=== PATIENT | male | born 1985 | race Two or more races ===

== ENCOUNTER 2022-04-18 19:28 | Emergency (ER) | payer BC, OTHER ==
[~2022-04-18] VITALS: Ht 172.7 cm; Wt 141.8 kg
[2022-04-18] MEDS ORDERED: cloNIDine HCL 0.1 MG TAB ONE (20:11)
[2022-04-18 20:20] LABS: Urine Bacteria NONE SEEN /hpf (None Seen); Urine Blood Negative /uL (Negative); Urine Specific Gravity 1.014 (1.001-1.035); Urine WBC 1 /hpf (0 - 3)
[2022-04-18] MEDS ORDERED: DexAMETHasone SOD PHOS 10MG/1ML VIAL INJ IM ONE (21:00)
[2022-04-18] MEDS ORDERED: ACYCLOVIR 400 MG TAB PO ONE (21:00)
[2022-04-18 22:08] VITALS: BP 162/115
[2022-04-18 22:15] LABS: Basophils # (auto) 0.1 10 ^3/uL (0-0.2); Basophils % (auto) 0.7 % (0.0-2.0); Eosinophils # (auto) 0.3 10 ^3/uL (0-0.8); Eosinophils % (auto) 1.8 % (0.0-7.0); Hematocrit 44.9 % (41.0-53.0); Lymphocytes % (auto) 20.4 % (10.0-50.0); Mean Corpuscular Hemoglobin 28.7 pg (28.0-32.0); Mean Corpuscular Hgb Conc. 33.5 g/dL (32.0-36.0); Mean Corpuscular Volume 85.8 fL (80.0-100.0); Monocytes # (auto) 0.7 10 ^3/uL (0-1.3); Monocytes % (auto) 4.8 % (0.0-12.0); Neutrophils # (auto) 10.7 10 ^3/uL (1.6-8.6); Neutrophils % (auto) 72.3 % (37.0-80.0); Red Blood Cells 5.24 10^6/uL (4.5-5.90); Red Cell Distribution Width 13.2 % (11.8-14.3); White Blood Cell 14.7 10^3/uL (4.4-10.8)
[2022-04-18 22:33] LABS: Calcium 9.1 mg/dL (8.5-10.1); Potassium 3.7 mmol/L (3.5-5.1)
[2022-04-18 22:38] LABS: BUN/Creatinine Ratio 7.3; Bilirubin, Total 0.5 mg/dL (0.2-1.0); Total Protein 8.2 g/dL (6.4-8.2)
[2022-04-19] MEDS ORDERED: ACYC-166 PO (03:55)
[2022-04-19] MEDS ORDERED: DEX4T PO (03:55)
== END 2022-04-19 04:16 | disposition home or self-care (01) ==
LOC: ER 19:31
DX: G51.0 Bell's palsy (principal); D72.829 Elevated white blood cell count, unspecified; F17.210 Nicotine dependence, cigarettes, uncomplicated; Z20.822 Contact with and (suspected) exposure to COVID-19
CPT/HCPCS: 36415; 70450; 80053; 81001; 85025; 87426; 87804; 96372

== ENCOUNTER 2024-11-25 08:26 | Inpatient (IN) | payer BC ==
[~2024-11-25] VITALS: Ht 172.7 cm; Wt 135.0 kg
[~2024-11-25 08:26] MED LIST: ACYC1TAB3 PO; DEX4T PO
--- NOTE | 2024-11-25 08:49 | ECG ---
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
--- NOTE | 2024-11-25 09:12 | DVH ---
XY CHEST PORTABLE, HISTORY: weakness COMPARISON: None None TECHNICAL DATA: 1 view of the chest was obtained. FINDINGS: Lines and tubes: None Cardiomediastinal silhouette: Enlarged Pulmonary vasculature: prominent Lung expansion: normal Lung airspace: normal Lung interstitium: normal Pleura: normal Pneumothorax: no Bones: Unremarkable Other: no IMPRESSION: Cardiomegaly with pulmonary vascular congestion.
[2024-11-25 09:17] LABS: Hematocrit 45.3 % (41.0-53.0); Hemoglobin 14.8 g/dL (13.5-17.5); Mean Corpuscular Hemoglobin 26.7 pg (28.0-32.0); Mean Corpuscular Volume 82.0 fL (80.0-100.0); Nucleated Red Blood Cells % 0.0 %
--- NOTE | 2024-11-25 09:17 | ED.PDOC ---
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 Patient reports that he went to his PCP due from having hypertension for a whilefor when getting his blood pressure checked at his PCP it came back as 178/150. Patient reports that he was hospitalized a month ago from having liquids in his lungs and heart failure. Patient notes that his symptoms during hypertension are shortness of breath, chest pain and tiredness. Patient states on being tired for the past 2 days which has been constant. Denies chills, fever, N/V/D. No other associated symptoms, modifiers, recent injuries or sick contacts present at this time. Chief Complaint: High Blood Pressure Time Seen by MD: 08:45 Primary Care Provider: ROSS Reza Notes: Nurses Notes, Medications, Allergies Allergies: Coded Allergies: NO KNOWN ALLERGIES (Unverified , 04/18/22) Home Meds Active Scripts Dexamethasone (Decadron) 4 Mg Tb, 6 MG PO DAILY for 7 Days, #14 TAB Prov:ROBERT CHAVEZ DO 04/19/22 Acyclovir (Acyclovir) 800 Mg Tab, 800 MG PO BID for 7 Days, #14 TAB Prov:ROBERT CHAVEZ DO 04/19/22 Information Source: Patient Mode of Arrival: Ambulatory Severity: Moderate Timing: Days Duration: Since onset, Days Prehospital treatment: None Past Medical History PAST MEDICAL HISTORY: Denies Surgical History: Denies all surgeries Family History Family History: Reviewed,noncontributory to illness, Unknown Social History Smoker: Non-Smoker Alcohol: Denies ETOH Use Drugs: Denies Drug Use Lives In: Home Constitutional: reports: fatigue; denies: chills, diaphoresis, fever, malaise, sweats, weakness, others EENTM: denies: blurred vision, double vision, ear bleeding, ear discharge, ear drainage, ear pain, ear ringing, eye pain, eye redness, hearing loss, mouth pain, mouth swelling, nasal discharge, nose bleeding, nose congestion, nose pain, photophobia, tearing, throat pain, throat swelling, voice changes, others Respiratory: reports: shortness of breath; denies: cough, hemoptysis, orthopnea, SOB at rest, SOB with excertion, stridor, wheezing, others Cardiovascular: reports: chest pain; denies: dizzy spells, diaphoresis, Dyspnea on exertion, edema, irregular heart beat, left arm pain, lightheadedness, palpitations, PND, syncope, others Gastrointestinal: denies: abdomen distended, abdominal pain, blood streaked bowels, constipated, diarrhea, dysphagia, difficulty swallowing, hematemesis, melena, nausea, poor appetite, poor fluid intake, rectal bleeding, rectal pain, vomiting, others Genitourinary: denies: burning, dysuria, flank pain, frequency, hematuria, incontinence, penile discharge, penile sore, pain, testicle pain, testicle swelling, urgency, others Neurological: denies: dizziness, fainting, headache, left sided numbness, left sided weakness, numbness, paresthesia, pre-existing deficit, right sided numbness, right sided weakness, seizure, speech problems, tingling, tremors, weakness, others Musculoskeletal: denies: back pain, gout, joint pain, joint swelling, muscle pain, muscle stiffness, neck pain, others Integumetry: denies: bruises, change in color, change in hair/nails, dryness, laceration, lesions, lumps, rash, wounds, others Allergic/Immunocompromised: denies: Difficulty Healing, Frequent Infections, Hives, Itching, others Hematologic/Lymphatic: denies: anemia, blood clots, easy bleeding, easy bruising, swollen glands, others Endocrine: denies: excessive hunger, excessive sweating, excessive thirst, excessive urination, flushing, intolerance to cold, intolerance to heat, unexplained weight gain, unexplained weight loss, others Psychiatric: denies: anxiety, bipolar disorder, depression, hopeless, panic disorder, schizophrenia, sleepless, suicidal, others All Other Systems: Reviewed and Negative Physical Exam General Appearance: No Apparent Distress, Normal HEENT: Normal ENT Inspection, Pharynx Normal, TMs Normal Neck: Full Range of Motion, Non-Tender, Normal, Normal Inspection Respiratory: Chest Non-Tender, Lungs Clear, No Accessory Muscle Use, No Respiratory Distress, Normal Breath Sounds Cardiovascular: No Edema, No JVD, No Murmur, No Gallop, Normal Peripheral Pulses, Regular Rate/Rhythm Breast Exam: Deferred Gastrointestinal: No Organomegaly, Non Tender, No Pulsatile Mass, Normal Bowel Sounds, Soft Genitalia: Deferred Pelvic: Deferred Rectal: Deferred Extremities: No calf tenderness, Normal capillary refill, Normal inspection, Normal range of motion, Non-tender, No pedal edema Musculoskeletal : Apperance: Normal Neurologic: Alert, production line II-XII nml as Tested, No Motor Deficits, Normal Affect, Normal Mood, No Sensory Deficits Cerebellar Function: Normal Reflexes: Normal Skin: Dry, Normal Color, Warm Lymphatic: No Adenopathy Was a procedure done? Was a procedure done?: No EKG EKG : Pulse Rate (adult): 93 [place]: Normal Cardiac Rhythm: NSR Block: None Hypertrophy: None ST: Normal Differential Dx Considerations may include: chf, hypertensive emergency, hypertensive urgency, noncompliance, renal failure, anxiety, stress reaction X-Ray, Labs, Meds, VS Vital Signs Date Time Temp Pulse Resp B/P (MAP) Pulse Ox O2 Delivery O2 Flow Rate FiO2 11/25/24 11:01 81 16 168/105 (126) 97 11/25/24 09:58 75 16 142/82 (102) 96 11/25/24 09:17 93 11/25/24 09:05 98.2 85 18 170/113 (132) 95 98.2 11/25/24 09:00 Room Air* 0 21 11/25/24 08:43 93 11/25/24 08:34 98.2 90 18 186/124 (144) 95 98.2 185/123 (143) Lab Test 11/25/24 09:54 11/25/24 08:59 Range/Units Troponin I High Sensitivity 14 15 </=54 ng/L White Blood Count 11.2 H 4.4-10.8 10^3/uL Red Blood Count 5.52 4.5-5.90 10^6/uL Hemoglobin 14.8 13.5-17.5 g/dL Hematocrit 45.3 41.0-53.0 % Mean Corpuscular Volume 82.0 80.0-100.0 fL Mean Corpuscular Hemoglobin 26.7 L 28.0-32.0 pg Mean Corpuscular Hemoglobin Concent 32.6 32.0-36.0 g/dL Red Cell Distribution Width 14.2 11.8-14.3 % Platelet Count 386 140-450 10^3/uL Mean Platelet Volume 8.1 6.9-10.8 fL Neutrophils (%) (Auto) 69.5 37.0-80.0 % Lymphocytes (%) (Auto) 22.0 10.0-50.0 % Monocytes (%) (Auto) 4.5 0.0-12.0 % Eosinophils (%) (Auto) 3.2 0.0-7.0 % Basophils (%) (Auto) 0.8 0.0-2.0 % Neutrophils # (Auto) 7.8 1.6-8.6 10 ^3/uL Lymphocytes # (Auto) 2.5 0.4-5.4 10 ^3/uL Monocytes # (Auto) 0.5 0-1.3 10 ^3/uL Eosinophils # (Auto) 0.4 0-0.8 10 ^3/uL Basophils # (Auto) 0.1 0-0.2 10 ^3/uL Nucleated Red Blood Cells 0.0 % Sodium Level 140 136-145 mmol/L Potassium Level 4.0 3.5-5.1 mmol/L Chloride Level 106 98-107 mmol/L Carbon Dioxide Level 24 20-31 mmol/L Anion Gap 10 5-15 Blood Urea Nitrogen 14 9-23 mg/dL Creatinine 1.58 H 0.700-1.30 mg/dL Glomerular Filtration Rate Calc 57 >90 mL/min BUN/Creatinine Ratio 8.9 L 10.0-20.0 Serum Glucose 107 H 74-106 mg/dL Calcium Level 9.5 8.7-10.4 mg/dL B-Type Natriuretic Peptide 83.47 0-100 pg/mL Time of 1ST Reevaluation: 09:15 Reevaluation 1ST: Unchanged Time of 2ND Reevaluation: 11:57 Reevaluation 2ND: Improved Patient Education/Counseling: Diagnosis, Treatment, Prognosis, Need For Follow Up Family Education/Counseling: No Family Present Comments pt's bp is improved, but he has evidence of chg on cxr and renal failure. pt reports that his kidneys are fine, and is not aware of any pre-existing renal disorders. he will be admitted for further workup of the uncontrolled htn, renal failure, chf SEPSIS Sepsis Screen Date sepsis recognized/suspect: Nov 25, 2024 Time Sepsis recognized/suspect: 0834 Recent Procedure: No On Antibiotic Therapy: No Respiratory Rate >20: No Heart Rate >90: No Temp<36 C (96.8 F) or >38.3 C: No SBP <90 or MAP <65 mmHG: No New Acute Mental Status Change: No Is the patient on CPAP, BIPAP,: No Physician Orders Chest Portable (11/25/24 08:46) Troponin-I Hs (11/25/24 11:46) Vital Signs Date Time Temp Pulse Resp B/P (MAP) Pulse Ox O2 Delivery O2 Flow Rate FiO2 11/25/24 11:01 81 16 168/105 (126) 97 11/25/24 09:58 75 16 142/82 (102) 96 11/25/24 09:17 93 11/25/24 09:05 98.2 85 18 170/113 (132) 95 98.2 11/25/24 09:00 Room Air* 0 21 11/25/24 08:43 93 11/25/24 08:34 98.2 90 18 186/124 (144) 95 98.2 185/123 (143) Laboratory Tests Test 11/25/24 08:59 White Blood Count 11.2 10^3/uL (4.4-10.8) H Departure 1 Departure Time of Disposition: 11:58 Impression: Primary Impression: Poorly-controlled hypertension Additional Impressions: Renal failure Qualified Codes: N17.9 - Acute kidney failure, unspecified CHF (congestive heart failure) Qualified Codes: I50.33 - Acute on chronic diastolic (congestive) heart failure Disposition: ADMITTED INPATIENT Admit to: Tele Condition: Serious Discharged With: Spouse Critical Care Note Critical Care Time?: Yes (55 min-critical care time only) Critical care comment: Due to concerns for patients condition deteriorating, the care required my highest level of attention and readiness to intervene. I assessed the patient, reviewed the medical records, ordered the appropriate tests and treatments, then reassessed for results and responsiveness. I communicated with medical personnel and consultants and formulated a plan of care. Total critical care time excludes any procedures Stability Stability form required: No I personally scribed for RUPAL HANLEY MD ([email or web address]) on 11/25/24 at 09:17. Electronically submitted by Mark Juarez ([email or web address]). RUPAL HANLEY MD Nov 25, 2024 09:17
[2024-11-25 09:26] LABS: Chloride 106 mmol/L (98-107); Potassium 4.0 mmol/L (3.5-5.1); Sodium 140 mmol/L (136-145)
[2024-11-25 09:27] LABS: Anion Gap 10 (5-15); Carbon Dioxide 24 mmol/L (20-31)
[2024-11-25 09:28] LABS: Calcium 9.5 mg/dL (8.7-10.4)
[2024-11-25 09:33] LABS: BUN/Creatinine Ratio 8.9 (10.0-20.0); Blood Urea Nitrogen 14 mg/dL (9-23); Glucose 107 mg/dL (74-106)
[2024-11-25] MEDS ORDERED: NITROGLYCERIN 0.4 MG SL TAB SL PRN (12:45)
[2024-11-25] MEDS ORDERED: ONDANSETRON HCL 4 MG/2 ML VIAL IV PRN (12:45)
[2024-11-25] MEDS ORDERED: MORPHINE SULFATE INJ 2 MG/ml SYRG IV PRN ×2 (12:45)
--- NOTE | 2024-11-25 12:51 | DVHHP2 ---
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 Patient reports that he went to his PCP due from having hypertension for a whilefor when getting his blood pressure checked at his PCP it came back as 178/150. Patient reports that he was hospitalized a month ago from having liquids in his lungs and heart failure. Patient notes that his symptoms during hypertension are shortness of breath, chest pain and tiredness. Patient states on being tired for the past 2 days which has been constant. Denies chills, fever, N/V/D. No other associated symptoms, modifiers, recent injuries or sick contacts present at this time. Given his blood pressure significantly elevated with a complains of chest discomfort and mild worsening of creatinine it is felt patient needs to be hospitalized for brief period of time to control his blood pressure and further adjust his BP medications. Review of Systems Review of Systems Complains of or shortness for breath with exertion and some chest discomfort. No nausea vomiting headache dizziness or lightheadedness. No recent travel. No fevers chills or sweats. Other review of systems reviewed normal. Allergies: Coded Allergies: NO KNOWN ALLERGIES (Unverified , 04/18/22) Medications Current Medications Medications Dose Ordered Sig/Ginger Route Start Time Stop Time Status Last Admin Dose Admin Nitroglycerin 0.4 mg Q5MINP PRN SL 11/25/24 12:45 UNV Morphine Sulfate 2 mg Q30M PRN IV 11/25/24 12:45 UNV Carvedilol 6.25 mg Q12HR PO 11/25/24 22:00 UNV Nifedipine 30 mg BID PO 11/25/24 22:00 UNV Hydralazine HCl 25 mg Q8HR PO 11/25/24 14:00 UNV Clonidine HCl 0.1 mg Q4HP PRN PO 11/25/24 12:45 UNV Ondansetron HCl 4 mg Q4HPRN PRN IV 11/25/24 12:45 UNV Morphine Sulfate 2 mg Q6HPRN PRN IV 11/25/24 12:45 UNV Famotidine 20 mg DAILY PO 11/26/24 10:00 UNV Exam Vital Signs Vital Signs Date Time Temp Pulse Resp B/P (MAP) Pulse Ox O2 Delivery O2 Flow Rate FiO2 11/25/24 12:31 67 11/25/24 11:01 16 168/105 (126) 97 11/25/24 09:05 98.2 98.2 11/25/24 09:00 Room Air* 0 21 Exam Obese gentleman alert awake oriented x3. Comfortable in bed without distress. HEENT neck supple no JVD. Heart regular rate and rhythm S1 plus S2. No murmurs. Lungs fair air movement chest tube will expansion no rales wheezes. Abdomen is obese. Soft nontender positive bowel sounds. Extremities trace edema around the ankles. Positive distal pedal pulses. Labs/Xrays Labs Test 11/25/24 12:00 11/25/24 08:59 Range/Units Troponin I High Sensitivity 14 </=54 ng/L White Blood Count 11.2 H 4.4-10.8 10^3/uL Red Blood Count 5.52 4.5-5.90 10^6/uL Hemoglobin 14.8 13.5-17.5 g/dL Hematocrit 45.3 41.0-53.0 % Mean Corpuscular Volume 82.0 80.0-100.0 fL Mean Corpuscular Hemoglobin 26.7 L 28.0-32.0 pg Mean Corpuscular Hemoglobin Concent 32.6 32.0-36.0 g/dL Red Cell Distribution Width 14.2 11.8-14.3 % Platelet Count 386 140-450 10^3/uL Mean Platelet Volume 8.1 6.9-10.8 fL Neutrophils (%) (Auto) 69.5 37.0-80.0 % Lymphocytes (%) (Auto) 22.0 10.0-50.0 % Monocytes (%) (Auto) 4.5 0.0-12.0 % Eosinophils (%) (Auto) 3.2 0.0-7.0 % Basophils (%) (Auto) 0.8 0.0-2.0 % Neutrophils # (Auto) 7.8 1.6-8.6 10 ^3/uL Lymphocytes # (Auto) 2.5 0.4-5.4 10 ^3/uL Monocytes # (Auto) 0.5 0-1.3 10 ^3/uL Eosinophils # (Auto) 0.4 0-0.8 10 ^3/uL Basophils # (Auto) 0.1 0-0.2 10 ^3/uL Nucleated Red Blood Cells 0.0 % Sodium Level 140 136-145 mmol/L Potassium Level 4.0 3.5-5.1 mmol/L Chloride Level 106 98-107 mmol/L Carbon Dioxide Level 24 20-31 mmol/L Anion Gap 10 5-15 Blood Urea Nitrogen 14 9-23 mg/dL Creatinine 1.58 H 0.700-1.30 mg/dL Glomerular Filtration Rate Calc 57 >90 mL/min BUN/Creatinine Ratio 8.9 L 10.0-20.0 Serum Glucose 107 H 74-106 mg/dL Calcium Level 9.5 8.7-10.4 mg/dL B-Type Natriuretic Peptide 83.47 0-100 pg/mL SEPSIS Sepsis Screen Date sepsis recognized/suspect: Nov 25, 2024 Time Sepsis recognized/suspect: 899 Recent Procedure: No On Antibiotic Therapy: No Respiratory Rate >20: No Heart Rate >90: No Temp<36 C (96.8 F) or >38.3 C: No SBP <90 or MAP <65 mmHG: No New Acute Mental Status Change: No Is the patient on CPAP, BIPAP,: No Physician Orders Chest Portable (11/25/24 08:46) Admit (11/25/24 12:45) * Cardiology Consult (11/25/24 12:45) Cardiac Diet-2gna,Lofat,Lochol (11/25/24 Lunch) Echo 2d Mode Cardiac Dop (11/25/24 12:45) Nitroglycerin Sublingual (Ntrostat Subli (11/25/24 12:45) Morphine Sulfate Injection (11/25/24 12:45) Stat Ekg For Chest Pain (11/25/24 12:45) Notify Md Of Changes From Base (11/25/24 12:45) Tassel Clipper For 24 Hours (11/25/24 12:45) Emergency Dysrhythmia Protocol (11/25/24 12:45) Rhythm Strips Once Every Shift (11/25/24 12:45) Oxygen By Nasal Cannula (11/25/24 12:45) Carvedilol Tablet (Coreg Tablet) (11/25/24 22:00) Nifedipine Er (Procardia Xl (Time-Releas (11/25/24 22:00) Hydralazine Hcl Tablet (Apresoline Table (11/25/24 14:00) Clonidine Hcl Tablet (Catapres Tablet) (11/25/24 12:45) Ondansetron Hcl (Zofran) (11/25/24 12:45) Morphine Sulfate Injection (11/25/24 12:45) Famotidine Tablet (Pepcid Tablet) (11/26/24 10:00) Alprazolam Tablet (Xanax Tablet) (11/25/24 13:00) Alprazolam Tablet (Xanax Tablet) (11/25/24 22:00) Basic Metabolic Panel (11/26/24 04:00) Vital Signs Date Time Temp Pulse Resp B/P (MAP) Pulse Ox O2 Delivery O2 Flow Rate FiO2 11/25/24 12:31 67 11/25/24 11:01 81 16 168/105 (126) 97 11/25/24 09:58 75 16 142/82 (102) 96 11/25/24 09:17 93 11/25/24 09:05 98.2 85 18 170/113 (132) 95 98.2 11/25/24 09:00 Room Air* 0 21 11/25/24 08:43 93 11/25/24 08:34 98.2 90 18 186/124 (144) 95 98.2 185/123 (143) Laboratory Tests Test 11/25/24 08:59 White Blood Count 11.2 10^3/uL (4.4-10.8) H Assessment/Plan Assessment/Plan Telemetry floor. 2D echocardiogram. Start him on home medications and adjust the dosages to keep the blood pressure below 140/80. Patient counseled and educated regarding diet exercise and weight loss for his obesity. We will monitor his kidney function. Probably secondary to end-organ damage from his with a poorly controlled hypertension. Otherwise continue rest of supportive care and treatment. Cardiac consultation. Further clinical management per clinical course and pending evaluations and studies. Plan discussed with: Other My Orders Orders - JESUSITA ABARCA MD Procedure Category Date Status Time Admit ADMIT 11/25/24 Transmitted 12:45 * Cardiology Consult CONS 11/25/24 Transmitted 12:45 Cardiac DIET 11/25/24 Transmitted Diet-2gna,Lofat,Lochol Lunch Echo 2d Mode Cardiac US 11/25/24 Logged DOP 12:45 Nitroglycerin PHA 11/25/24 Logged Sublingual (Ntrostat 12:45 Morphine Sulfate PHA 11/25/24 Logged Injection 12:45 Stat Ekg For Chest [facility] 11/25/24 In Process Pain 12:45 Notify Of Changes [facility] 11/25/24 In Process From Base 12:[address] Tassel [address] [facility] 11/25/24 In Process 24 Hours 12:[address] [facility] 11/25/24 In Process Protocol 12:45 Rhythm Strips [address] [facility] 11/25/24 In Process Every Shift 12:45 Oxygen By Nasal RT 11/25/24 Transmitted Cannula 12:45 Carvedilol Tablet PHA 11/25/24 Logged (Coreg Tablet) 22:00 Nifedipine Er PHA 11/25/24 Logged (Procardia Xl 22:00 Hydralazine Hcl PHA 11/25/24 Logged Tablet (Apresoline 14:00 Clonidine Hcl Tablet PHA 11/25/24 Logged (Catapres Tablet) 12:45 Ondansetron Hcl PHA 11/25/24 Logged (Zofran) 12:45 Morphine Sulfate PHA 11/25/24 Logged Injection 12:45 Famotidine Tablet PHA 11/26/24 Logged (Pepcid Tablet) 10:00 Alprazolam Tablet PHA 11/25/24 Logged (Xanax Tablet) 13:00 Alprazolam Tablet PHA 11/25/24 Logged (Xanax Tablet) 22:00 Basic Metabolic Panel LAB 11/26/24 Verified 04:00 Problem List: (1) Renal failure (2) Poorly-controlled hypertension JESUSITA ABARCA MD Nov 25, 2024 12:51
[2024-11-25] MEDS: ALPRAZolam 0.25 MG TAB PO ONE (13:13)
[2024-11-25 14:19] VITALS: BP 157/103; PULSE 87; RESP 16; TEMP 98.6; O2SAT 97
[2024-11-25 14:28] VITALS: BP 157/103; PULSE 87; RESP 16; O2SAT 97
[2024-11-25] MEDS ORDERED: FURO40TA4 PO (14:47)
[2024-11-25] MEDS ORDERED: CARV3.1240 PO (14:47)
[2024-11-25] MEDS ORDERED: LOSA-534 PO (14:47)
--- NOTE | 2024-11-25 16:49 | DVHINCON2 ---
Date Seen: Nov 25, 2024 Referring Physician MD Rosa Reason for Consultation Hypertension History of Present Illness This is a 39-year-old male patient who presents to the emergency room with chief complaint of elevated blood pressure and chest pressure. The patient reports that he was being seen at his primary care physician's office for a nurse visit and was told that his blood pressure was significantly elevated and that he needed to go to the emergency room. The patient mentions that he has been having intermittent chest pressure for two days. He describes it as unprovoked, intermittent, pressure-like in nature, left-sided and nonradiating. He denies any associated symptoms. Initial twelve lead electrocardiogram reveals normal sinus rhythm without any significant ST segment changes. Initial troponin level of 15ng/L with flat trend thereafter. Significant past medical history includes congestive heart failure, hypertension, dyslipidemia, Joel's palsy, and obesity. The patient states he has not followed up with a van helper in the outpatient setting. Past Medical History Past medical history reviewed. No other significant than mentioned above. Past Surgical History Denies Family History: Diabetes mellitus G8 MOTHER Family History Family history reviewed. Social History Patient has a five pack-year history, quit smoking approximately five months ago Denies any illicit drug use Admits to occasional alcohol use Allergies: Coded Allergies: NO KNOWN ALLERGIES (Unverified , 04/18/22) Home Meds Reported Medications Furosemide (Furosemide) 40 Mg Tab, 1 TAB PO DAILY 11/25/24 Carvedilol (Carvedilol) 3.125 Mg Tab, 1 TAB PO BID 11/25/24 Losartan Potassium (Losartan Potassium) 50 Mg Tab, 1 TAB PO DAILY 11/25/24 Home Meds Home medications reviewed. Current Medications Current Medications Medications (Trade) Dose Ordered Sig/Ginger Route PRN Reason Start Time Stop Time Status Last Admin Nitroglycerin (Ntrostat Sublingual) 0.4 mg Q5MINP PRN SL FOR CHEST PAIN 11/25/24 12:45 Morphine Sulfate 2 mg Q30M PRN IV FOR CHEST PAIN 11/25/24 12:45 Carvedilol (Coreg Tablet) 6.25 mg Q12HR PO 11/25/24 22:00 Nifedipine (Procardia Xl (Time-Release)) 30 mg BID PO 11/25/24 22:00 Hydralazine HCl (Apresoline Tablet) 25 mg Q8HR PO 11/25/24 14:00 11/25/24 13:13 Clonidine HCl (Catapres Tablet) 0.1 mg Q4HP PRN PO SBP>150 11/25/24 12:45 Ondansetron HCl (Zofran) 4 mg Q4HPRN PRN IV NAUSEA / VOMITING 11/25/24 12:45 Morphine Sulfate 2 mg Q6HPRN PRN IV SEVERE PAIN (7-10 PAIN SCALE) 11/25/24 12:45 Famotidine (Pepcid Tablet) 20 mg DAILY PO 11/26/24 10:00 Alprazolam (Xanax Tablet) 0.25 mg BID PO 11/25/24 22:00 Losartan Potassium (Cozaar Tablet) 100 mg DAILY PO 11/26/24 10:00 Review of Systems Constitutional: No symptom reported Ears, Nose, & Throat: No symptom reported Eyes: No symptom reported Neurological: No symptoms reported Pulmonary/Respiratory: No symptoms reported Cardiovascular: Chest pressure Gastrointestinal: No symptom reported Genitourinary: No symptom reported Musculoskeletal: No symptom reported Skin: No symptom reported Psychiatric: No symptom reported Endocrine: No symptom reported Hematologic/Lymphatic: No symptom reported Vital Signs Vital Signs Date Time Temp Pulse Resp B/P (MAP) Pulse Ox O2 Delivery O2 Flow Rate FiO2 11/25/24 14:28 87 16 157/103 (121) 97 11/25/24 14:19 98.6 98.6 11/25/24 09:00 Room Air* 0 21 Physical Exam General Appearance: Cooperative. Morbidly obese Pulmonary/Respiratory: Clear, bilateral breaths sounds. Cardiovascular/Chest: Regular rate and rhythm. Peripheral Pulses: 2+ Radial (R). 2+ Radial (L). 2+ Pedal (R). 2+ Pedal (L) Abdominal Exam: Normal bowel sounds. Ankle Exam: Negative ankle edema Lower extremities: Negative lower extremity edema Neuro/Mental Status: A/OX4, coherent. Thoughts/Psych: Normal thought pattern. Appropriate mood and affect. Good judgment and insight. Appearance: No acute distress. Skin Exam: Normal inspection. Normal color. Warm and dry. Labs/Diagnostic Data Labs Test 11/25/24 12:00 11/25/24 08:59 Range/Units Troponin I High Sensitivity 14 </=54 ng/L White Blood Count 11.2 H 4.4-10.8 10^3/uL Red Blood Count 5.52 4.5-5.90 10^6/uL Hemoglobin 14.8 13.5-17.5 g/dL Hematocrit 45.3 41.0-53.0 % Mean Corpuscular Volume 82.0 80.0-100.0 fL Mean Corpuscular Hemoglobin 26.7 L 28.0-32.0 pg Mean Corpuscular Hemoglobin Concent 32.6 32.0-36.0 g/dL Red Cell Distribution Width 14.2 11.8-14.3 % Platelet Count 386 140-450 10^3/uL Mean Platelet Volume 8.1 6.9-10.8 fL Neutrophils (%) (Auto) 69.5 37.0-80.0 % Lymphocytes (%) (Auto) 22.0 10.0-50.0 % Monocytes (%) (Auto) 4.5 0.0-12.0 % Eosinophils (%) (Auto) 3.2 0.0-7.0 % Basophils (%) (Auto) 0.8 0.0-2.0 % Neutrophils # (Auto) 7.8 1.6-8.6 10 ^3/uL Lymphocytes # (Auto) 2.5 0.4-5.4 10 ^3/uL Monocytes # (Auto) 0.5 0-1.3 10 ^3/uL Eosinophils # (Auto) 0.4 0-0.8 10 ^3/uL Basophils # (Auto) 0.1 0-0.2 10 ^3/uL Nucleated Red Blood Cells 0.0 % Sodium Level 140 136-145 mmol/L Potassium Level 4.0 3.5-5.1 mmol/L Chloride Level 106 98-107 mmol/L Carbon Dioxide Level 24 20-31 mmol/L Anion Gap 10 5-15 Blood Urea Nitrogen 14 9-23 mg/dL Creatinine 1.58 H 0.700-1.30 mg/dL Glomerular Filtration Rate Calc 57 >90 mL/min BUN/Creatinine Ratio 8.9 L 10.0-20.0 Serum Glucose 107 H 74-106 mg/dL Calcium Level 9.5 8.7-10.4 mg/dL B-Type Natriuretic Peptide 83.47 0-100 pg/mL Assessment Hypertensive urgency Rule out structural heart disease Acute kidney injury History of Joel's palsy History of tobacco use Morbid obesity Plan/Recommendation We will continue with the following plan/recommendations (Dr. Larson): * Transthoracic echocardiogram to evaluate cardiac function * Aggressive blood pressure control as tolerated * Renal ultrasound * Close Cardiac surveillance * Risk factor modifications, counseled * Dietary and lifestyle changes Case discussed with . Continue with the aggressive BP control as tolerated by patient. Thank you for allowing us to care for this patient. Please call with any questions or concerns. Critical care time spent: 44 minutes This medical document was created using an electronic medical record system with voice recognition software and computerized dictation system. Although this document has been carefully reviewed, there might still be some phonetic and typographical errors. Occasional wrong-word or ``sound-alike substitutions may have occurred due to the inherent limitations of voice recognition software. These areas are purely typographical due to imperfections of the software programs and do not reflect any compromise in the patient's medical care. Please read the chart carefully and recognize, using context, where these substitutions have occurred. Plan discussed with: Patient NYHA Physical activity limitations: NA Date of Service: Nov 25, 2024 Billing Provider: EVAN CARMICHAEL Cardiology Common Codes: [id number] INP/OBS CARE (High) Cardiology Consultation Codes: 76618-[id number] CONSULT <45MIN EVAN CARMICHAEL Nov 25, 2024 16:49
[2024-11-25 17:08] LABS: Magnesium 2.1 mg/dL (1.6-2.6)
[2024-11-25 17:09] LABS: Triglycerides 295.0 mg/dL (< 150)
[2024-11-25 17:10] LABS: Cholesterol 187.0 mg/dL (< 200)
[2024-11-25 17:27] VITALS: BP 157/102; PULSE 93; RESP 18; TEMP 98.3; O2SAT 96
[2024-11-25 17:52] LABS: HDL Cholesterol 38.0 mg/dL (40-59)
[2024-11-25 20:24] VITALS: BP 160/116; PULSE 89; RESP 15; TEMP 99.3; O2SAT 98
[2024-11-25] MEDS: ALPRAZolam 0.25 MG TAB PO SCH (22:28)
[2024-11-25] MEDS: CARVEDILOL 3.125 MG TAB PO SCH (22:31)
[2024-11-26] VITALS (8 sets, daily range): BP systolic 115–143; BP diastolic 70–102; PULSE 75–99; RESP 18–20; TEMP 97.5–98.6; O2SAT 93–100
--- NOTE | 2024-11-26 05:13 | DVH ---
INDICATION: Hypertension TECHNIQUE: Multiple real-time sonographic images of the kidneys and bladder were obtained. Duplex Doppler evaluation including color Doppler and spectral/pulsed waveform analysis of the bilate ral renal arteries was performed. COMPARISON: None FINDINGS: The right kidney measures 10.3 cm in length. The right renal echogenicity, contour and cortical thick ness are within normal limits. No hydronephrosis or large masses/calculi are seen. The left kidney measures 9.6 cm in length. The left renal echogenicity, contour, and cortical thickne ss are within normal limits. No hydronephrosis or large masses/calculi are seen. Aorta peak systolic velocity, 80 cm/s Right renal artery peak systolic velocity, 35 cm/s (< 180 cm/s = normal). Left renal artery peak systolic velocity 42 cm/s (< 180 cm/s = normal). Right RAR : 0.4 (< 3.5, normal) Left RAR 0.5 (< 3.5, normal) Right RI: 0.58 (< 0.75, normal) Left RI: 0.59 (< 0.75, normal) IMPRESSION: No findings to suggest renal artery stenosis. *Uma Chowdhury Techniques in Noninvasive Vascular Diagnosis 2002
[2024-11-26 05:37] LABS: Anion Gap 9 (5-15); Calcium 9.5 mg/dL (8.7-10.4); Carbon Dioxide 26 mmol/L (20-31); Chloride 104 mmol/L (98-107); Potassium 3.7 mmol/L (3.5-5.1); Sodium 139 mmol/L (136-145)
[2024-11-26 05:43] LABS: BUN/Creatinine Ratio 10.8 (10.0-20.0); Blood Urea Nitrogen 16 mg/dL (9-23); Glucose 89 mg/dL (74-106)
[2024-11-26] MEDS: LOSARTAN POTASSIUM 50 MG TAB PO SCH (08:55)
[2024-11-26] MEDS: FAMOTIDINE 20 MG TAB PO SCH (08:56)
--- NOTE | 2024-11-26 11:52 | DVHPN2 ---
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 Blood pressures controlled today. Objective vital signs Vital Sign Date Time Temp Pulse Resp B/P (MAP) Pulse Ox O2 Delivery O2 Flow Rate FiO2 11/26/24 09:00 97.6 83 20 124/73 (90) 97 97.6 11/26/24 00:23 Room Air* 0 21 Total Intake and Output 11/25/24 11/25/24 11/26/24 15:00 23:00 07:00 Intake Total 750 ml 100 ml Balance 750 ml 100 ml medications Current Medications Medications Dose Ordered Sig/Ginger Route Start Time Stop Time Status Last Admin Dose Admin Nitroglycerin 0.4 mg Q5MINP PRN SL 11/25/24 12:45 Morphine Sulfate 2 mg Q30M PRN IV 11/25/24 12:45 Carvedilol 6.25 mg Q12HR PO 11/25/24 22:00 11/26/24 08:56 6.25 MG Nifedipine 30 mg BID PO 11/25/24 22:00 11/26/24 08:56 30 MG Clonidine HCl 0.1 mg Q4HP PRN PO 11/25/24 12:45 11/25/24 22:51 0.1 MG Ondansetron HCl 4 mg Q4HPRN PRN IV 11/25/24 12:45 Morphine Sulfate 2 mg Q6HPRN PRN IV 11/25/24 12:45 Famotidine 20 mg DAILY PO 11/26/24 10:00 11/26/24 08:56 20 MG Losartan Potassium 100 mg DAILY PO 11/26/24 10:00 11/26/24 08:55 100 MG Examination: GENERAL:Normal, LUNGS:Normal, CVS:Normal, NEURO:Normal laboratory and microbiology Laboratory Tests 11/26/24 04:00 11/25/24 08:59 Test 11/26/24 04:00 Range/Units Serum Glucose 89 74-106 mg/dL Problem List/Assessment/Plan Problem List/Assessment/Plan Hypertensive urgency, resolved Rule out structural heart disease Acute kidney injury History of Joel's palsy History of tobacco use Morbid obesity Plan/Recommendation (Dr. Larson): * Transthoracic echocardiogram to evaluate cardiac function * Aggressive blood pressure control as tolerated * Renal ultrasound: Negative for stenosis * Close Cardiac surveillance * Risk factor modifications, counseled * Dietary and lifestyle changes Case discussed with . Continue with the aggressive BP control as tolerated by patient. In the setting of an unremarkable transthoracic echocardiogram, there is no further inpatient cardiac workup indicated at this time. Thank you for allowing us to care for this patient. Please call with any questions or concerns. This medical document was created using an electronic medical record system with voice recognition software and computerized dictation system. Although this document has been carefully reviewed, there might still be some phonetic and typographical errors. Occasional wrong-word or ``sound-alike substitutions may have occurred due to the inherent limitations of voice recognition software. These areas are purely typographical due to imperfections of the software programs and do not reflect any compromise in the patient's medical care. Please read the chart carefully and recognize, using context, where these substitutions have occurred. Plan discussed with: Patient Date of Service: Nov 26, 2024 Billing Provider: EVAN CARMICHAEL Common Visit Codes: [id number] INP/OBS CARE(HIGH) EVAN CARMICHAEL Nov 26, 2024 11:52
[2024-11-26] MEDS ORDERED: LOSA-534 PO (13:01)
[2024-11-26] MEDS ORDERED: NIFE1TAB36 PO (13:01)
[2024-11-26] MEDS ORDERED: HYDR25TA5 PO (13:01)
[2024-11-26] MEDS ORDERED: CARV3.1240 PO (13:01)
[2024-11-27 01:00] VITALS: BP 118/80; PULSE 90; RESP 20; TEMP 98.3; O2SAT 94
[2024-11-27 05:00] VITALS: BP 125/79; PULSE 97; RESP 20; TEMP 98.3; O2SAT 97
[2024-11-27 07:30] VITALS: PULSE 89
[2024-11-27 08:55] VITALS: BP 113/70; PULSE 78; RESP 20; TEMP 97.7; O2SAT 95
[2024-11-27] MEDS: hydroCHLOROthiazide 25 MG TAB PO SCH (09:06)
[2024-11-27] MEDS ORDERED: hydroCHLOROthiazide 25 MG TAB PO SCH (10:00)
[2024-11-27] MEDS ORDERED: LOSA-534 PO (10:25)
[2024-11-27] MEDS ORDERED: HYDR25TA5 PO (10:25)
[2024-11-27] MEDS ORDERED: NIFE1TAB36 PO (10:25)
[2024-11-27] MEDS ORDERED: CARV3.1240 PO (10:25)
--- NOTE | 2024-11-27 10:27 | DVHDS2 ---
Discharge Summary Date of Admission Nov 25, 2024 at 12:45 Date of Discharge: Nov 27, 2024 Labs/Diagnostic Data: Laboratory Results Test 11/26/24 12:50 11/26/24 04:00 11/25/24 12:00 11/25/24 08:59 D-Dimer, Quantitative < 0.19 mg/L FEU (0.0-0.49) Sodium Level 139 mmol/L (136-145) Potassium Level 3.7 mmol/L (3.5-5.1) Chloride Level 104 mmol/L (98-107) Carbon Dioxide Level 26 mmol/L (20-31) Anion Gap 9 (5-15) Blood Urea Nitrogen 16 mg/dL (9-23) Creatinine 1.48 mg/dL (0.700-1.30) Glomerular Filtration Rate Calc 62 mL/min (>90) BUN/Creatinine Ratio 10.8 (10.0-20.0) Serum Glucose 89 mg/dL (74-106) Calcium Level 9.5 mg/dL (8.7-10.4) Troponin I High Sensitivity 14 ng/L (</=54) White Blood Count 11.2 10^3/uL (4.4-10.8) Red Blood Count 5.52 10^6/uL (4.5-5.90) Hemoglobin 14.8 g/dL (13.5-17.5) Hematocrit 45.3 % (41.0-53.0) Mean Corpuscular Volume 82.0 fL (80.0-100.0) Mean Corpuscular Hemoglobin 26.7 pg (28.0-32.0) Mean Corpuscular Hemoglobin Concent 32.6 g/dL (32.0-36.0) Red Cell Distribution Width 14.2 % (11.8-14.3) Platelet Count 386 10^3/uL (140-450) Mean Platelet Volume 8.1 fL (6.9-10.8) Neutrophils (%) (Auto) 69.5 % (37.0-80.0) Lymphocytes (%) (Auto) 22.0 % (10.0-50.0) Monocytes (%) (Auto) 4.5 % (0.0-12.0) Eosinophils (%) (Auto) 3.2 % (0.0-7.0) Basophils (%) (Auto) 0.8 % (0.0-2.0) Neutrophils # (Auto) 7.8 10 ^3/uL (1.6-8.6) Lymphocytes # (Auto) 2.5 10 ^3/uL (0.4-5.4) Monocytes # (Auto) 0.5 10 ^3/uL (0-1.3) Eosinophils # (Auto) 0.4 10 ^3/uL (0-0.8) Basophils # (Auto) 0.1 10 ^3/uL (0-0.2) Nucleated Red Blood Cells 0.0 % Hemoglobin A1c 5.6 % A1C (<5.7) Magnesium Level 2.1 mg/dL (1.6-2.6) B-Type Natriuretic Peptide 83.47 pg/mL (0-100) Triglycerides Level 295 mg/dL (< 150) Cholesterol Level 187 mg/dL (< 200) LDL Cholesterol 114 mg/dL (< 100) HDL Cholesterol 38 mg/dL (40-59) Thyroid Stimulating Hormone (TSH) 4.08 uIU/mL (0.55-4.78) Other Laboratory Tests 11/26/24 04:00 11/25/24 08:59 Brief Hx & Hospital Course: 39-year-old male presents to the ER with being a DVH on April 18 2022 for Joel's palsy and the chief complaint of hypertension. Patient reports that he went to his PCP due from having hypertension for a whilefor when getting his blood pressure checked at his PCP it came back as 178/150. Patient reports that he was hospitalized a month ago from having liquids in his lungs and heart failure. Patient notes that his symptoms during hypertension are shortness of breath, chest pain and tiredness. Patient states on being tired for the past 2 days which has been constant. Denies chills, fever, N/V/D. No other associated symptoms, modifiers, recent injuries or sick contacts present at this time. He is admitted and blood pressure medications have been adjusted. Patient educated regarding diet exercise weight loss. Patient advised to follow up with primary care physician to further discuss options including newer medications for weight loss. Patient is advised to avoid fatty foods and stick with low-fat low-cholesterol and 2 g sodium diet. Otherwise while in the hospital his blood pressure remained normal. He is feeling better. Therefore it is felt he could be safely discharged home with close outpatient follow up. I have talked with the patient regarding his hospital diagnosis, treatment he received, discharge medications, discharge instructions and follow-up plan of care. Patient and his significant other who is at bedside verbalized understanding the instructions and agree with the care plan as outlined. Consults/Reason for consult Problem List/Assessment/Plan Hypertensive urgency, resolved Rule out structural heart disease Acute kidney injury History of Joel's palsy History of tobacco use Morbid obesity Plan/Recommendation (Dr. Larson): * Transthoracic echocardiogram to evaluate cardiac function * Aggressive blood pressure control as tolerated * Renal ultrasound: Negative for stenosis * Close Cardiac surveillance * Risk factor modifications, counseled * Dietary and lifestyle changes Case discussed with . Continue with the aggressive BP control as tolerated by patient. In the setting of an unremarkable transthoracic echocardiogram, there is no further inpatient cardiac workup indicated at this time. Thank you for allowing us to care for this patient. Please call with any questions or concerns. This medical document was created using an electronic medical record system with voice recognition software and computerized dictation system. Although this document has been carefully reviewed, there might still be some phonetic and typographical errors. Occasional wrong-word or ``sound-alike substitutions may have occurred due to the inherent limitations of voice recognition software. These areas are purely typographical due to imperfections of the software programs and do not reflect any compromise in the patient's medical care. Please read the chart carefully and recognize, using context, where these substitutions have occurred. Plan discussed with: Patient Date of Service: Nov 26, 2024 Billing Provider: EVNA CARMICHAEL Common Visit Codes: [id number] INP/OBS CARE(HIGH) Condition at Discharge: Stable Final Diagnosis/Problems List malignant HTN, obeisity with BMI 45, Discharge Disposition: Home Discharge Instruct/Medications Diet: Consistent carbohydrate, Cardiac 2g Na,low cholest Activity: No Restrictions, As Tolerated Follow Up/Referral: PCP next week to repeat labs for kidney function due to HTN, with your heart doctor 2 weeks for echocardiogram results Medications: as prescribed. New Medications: Hctz (Hydrochlorothiazide) 25 Mg Tab 25 MG PO DAILY@BREAKFAST MDD ., #90 TAB 1 Refill Nifedipine (Nifedipine ER) 30 Mg Tab 30 MG PO QPM MDD ., #90 TAB 1 Refill Changed Medications: Carvedilol (Carvedilol) 3.125 Mg Tab 2 TAB PO BID MDD ., #90 TAB 1 Refill (Changed from: 1 TAB; Refills: ) Take two tablets (6.25mg) twice a day Losartan Potassium (Losartan Potassium) 50 Mg Tab 2 TAB PO DAILY MDD ., #90 TAB 1 Refill (Changed from: 1 TAB; Refills: ) Take two tablets (100 mg) daily Discontinued Medications: Furosemide (Furosemide) 40 Mg Tab 1 TAB PO DAILY Scheduled Carvedilol (Carvedilol), 2 TAB PO BID Furosemide (Furosemide), 1 TAB PO DAILY, (Reported) Hctz (Hydrochlorothiazide), 25 MG PO DAILY@BREAKFAST Losartan Potassium (Losartan Potassium), 2 TAB PO DAILY Nifedipine (Nifedipine ER), 30 MG PO QPM Discontinued Medications Carvedilol (Carvedilol), 1 TAB PO BID, (Reported) Discontinued Reason: Prescription changed Losartan Potassium (Losartan Potassium), 1 TAB PO DAILY, (Reported) Discontinued Reason: Prescription changed Discharge Statement: "Patient was advised to return to the ER or call 911 if any headaches, dizziness, shortness of breath, chest pain, abdominal pain, bleeding, fevers, or worsening of medical condition. Patient was counseled about treatment plan, medications, possible side effects, patientverbalized understanding. All questions were answered to the best of my ability. This discharge took greater then 30 minutes in planning, reviewing documentation, counseling the patient, and discussing with other team members." ASSESSMENT ASSESSMENT Assessment malignant HTN, obeisity with BMI 45, JESUSITA ABARCA MD Nov 27, 2024 10:27
[2024-11-27 11:36] VITALS: BP 113/70; PULSE 90; TEMP 36.5
--- NOTE | 2024-11-28 13:59 | DVHSR ---
APPROVED REPORT EXAM: Two-dimensional and M-mode echocardiogram with Doppler and color Doppler. Blood Pressure: 168/105 mmHg INDICATION Hypertension RISK FACTORS Obesity: Height: 5'8", Weight: 282 DIMENSIONS LVDd5.7 (3.8-5.7cm)LA (2D)3.9 (1.9-4.0cm)Aortic Root3.6 (2.0-3.7cm) LVDs4.3 (2.5-4.0cm)LA (MM) (1.9-4.0cm)Aortic Cusp Exc1.9 (1.5-2.0cm) EF (%) 50.0 (55-70%)Rt. Atrium3.8 (1.9-4.0cm)Asc. Aorta cm IVSd1.5 (0.7-1.1cm)RV (D)3.6 (1.8-2.4cm) PWd1.4 (0.7-1.1cm) Mitral Valve MitralMitral Stenosis E wave1.17m/sMV Mean GR.mmHg A wave0.65m/sMV Peak GR.mmHg E/A ratio1.82D MVAcm2 DECEL [id number] 1/2 Timems Aortic Valve Aortic ValveAortic Stenosis V10.85m/Annalee Mean GR.4mmHg V21.37m/Annalee Peak GR.7mmHg LVOT Diameter2.1 (1.8-2.4cm)Doppler AVA2.15cm2 Pulmonic Valve V20.88m/s Conclusion Sinus rhythm. Concentric LVH with mild left atrial enlargement and right ventricular enlargement. Valves appear to be structurally normal. Left ventricular function is mildly diminished. EF is borderline at 50% with normal RV function. Trace mitral insufficiency. Trace pulmonic insufficiency. Mild tricuspid regurgitation. No pericardial effusion masses or vegetations.
== END 2024-11-27 12:30 | disposition home or self-care (01) | DRG 305 ==
LOC: ER 08:26 → OVERFLOW 12:45 → TELE-WESTW 23:37
PROVIDERS: ADMIT Hospitalist; ATTEND Hospitalist
DX: I16.0 Hypertensive urgency (principal); N17.9 Acute kidney failure, unspecified; Z68.42 Body mass index [BMI] 45.0-49.9, adult; I11.0 Hypertensive heart disease with heart failure; I50.9 Heart failure, unspecified; E66.01 Morbid (severe) obesity due to excess calories; E78.5 Hyperlipidemia, unspecified; Z83.3 Family history of diabetes mellitus; Z87.891 Personal history of nicotine dependence
CPT/HCPCS: 36415; 71045; 80048; 80061; 83036; 83735; 83880; 84443; 84484; 85025; 85379; 93005; 93306; 93975; 99291; G0378